=== PATIENT | female | born 1985 | race Caucasian/White ===

== ENCOUNTER 2024-08-16 15:21 | Emergency (ER) | payer MEDICARE, SELFPAY ==
--- NOTE | ~2024-08-16 | XR_ITS ---
CLINICAL HISTORY: pain, injury Three views of the left ankle. COMPARISON: None provided. FINDINGS: Lateral left ankle soft tissue swelling. Ankle joint effusion. Small nondisplaced fracture of the tip of the medial malleolus of the distal tibia. Distal fibula appears intact. Ankle mortise appears symmetric on non stressed views. Talar dome appears intact. Visualized tarsal bones appear intact. IMPRESSION: 1. Nondisplaced fracture of the tip of the medial malleolus of the distal tibia. 2. Lateral left ankle soft tissue swelling. This document has been electronically signed by: Shahram Engel MD on 08/16/2024 17:13:12
--- NOTE | ~2024-08-16 | XR_ITS ---
CLINICAL HISTORY: pain, injury Three views of the left foot. COMPARISON: None provided. FINDINGS: No ankle joint effusion. Normal tarsometatarsal alignment. Tarsals, metatarsals and phalanges appear intact. No radiopaque foreign body. IMPRESSION: 1. No radiographic evidence of acute injury to the bones of the left foot. No radiopaque foreign body. This document has been electronically signed by: Shahram Engel MD on 08/16/2024 16:29:23
--- NOTE | ~2024-08-16 | XR_ITS ---
CLINICAL HISTORY: pain, injury Four views of the left knee. COMPARISON: None provided. FINDINGS: No suprapatellar joint effusion. Joint spaces are maintained. Visualized portions of the distal femur, patella, and proximal tibia and fibula appear intact. No radiopaque foreign body. IMPRESSION: 1. No radiographic evidence of acute injury to the left knee. This document has been electronically signed by: Shahram Engel MD on 08/16/2024 16:31:59
--- NOTE | 2024-08-16 15:23 | ED.GENADULT ---
HPI - General Adult General Chief complaint: Extremity Injury, Lower Stated complaint: left ankle inj Time Seen by Provider: 08/16/24 16:19 Source: patient, family and RN notes reviewed Mode of arrival: ambulatory Limitations: no limitations History of Present Illness ED Provider: Agatha No PA-C HPI narrative: This is a 38-year-old female who presents emergency department with complaints of left ankle and foot pain status post inversion injury which occurred 2 days ago. Patient states that while she was walking she accidentally twisted her left ankle 2 times, felt a cracking/popping sensation in her ankle, and she fell to the ground. She denies hitting her head or LOC. She is not on anticoagulation. She has been taking [id number] pain medication as directed which has provided her with minimal relief. Patient is here with 2 young children, states difficult to rest ankle as she is taking care of them. No other complaints or concerns at this time. MD complaint: Left ankle/foot pain Onset (ago): day(s) Location: lower extremity Radiation: extremity Severity: moderate Quality: aching Pain Consistency: constant Relieving factors: immobilization Exacerbating factors: movement Associated symptoms: denies other symptoms Treatments prior to arrival: none Related Data Previous Rx's ?Medication ?Instructions ?Recorded acetaminophen 500 mg tablet 1,000 mg (2 x 500 mg) PO Q6H PRN 08/16/24 (Tylenol Extra Strength) pain #30 tabs ibuprofen 600 mg tablet 600 mg PO Q6H PRN pain #30 tabs 08/16/24 Allergies Allergy/AdvReac Type Severity Reaction Status Date / Time No Known Allergies Allergy Verified 08/16/24 15:27 Review of Systems Review of Systems: Yes all other systems are reviewed and are negative Constitutional: Constitutional: Reports as per [facility] Past Medical History Attestation statement: The following information was validated with the patient. Social History Social History Unable to assess alcohol history related to: Unknown Use of substances other than those prescribed or required for medical reasons: Unknown Advance Directives: No Advance Directives Information Provided: No Physical Exam ED Vital Signs: Vital Signs - 24 hr 08/16/24 15:26 Temperature 97.6 F Pulse Rate 86 Respiratory Rate 18 Blood Pressure 104/58 L Pulse Oximetry 98 Oxygen Delivery Method Room Air BMI result Body Mass Index 34.1 Const General: cooperative, comfortable and no acute distress Orientation/consciousness: patient oriented x3 Limitations: no limitations HENMT Head: Yes normal to inspection, Yes normocephalic and Yes atraumatic Ears: hearing grossly normal bilaterally General nose exam: Normal external nose present Face and sinus: Yes normal facial exam Mouth: Normal oral and palatal mucosa present, oropharynx normal and moist mucous membranes Throat: Yes posterior oropharynx normal Eyes General: appearance normal, both eyes and all related structures Eyelids: Yes eyelids normal Conjunctivae: conjunctivae normal Sclerae: sclerae normal Pupils: Equal, round and reactive pupils present EOM: EOMs intact bilaterally Neck Neck: Yes normal visual inspection, Yes full ROM and Yes no lymphadenopathy Lymphatic: no lymphadenopathy noted Chest Chest palpation & inspection: normal inspection of the chest Resp Effort & Inspection: normal respiratory effort and able to speak in complete sentences Auscultation: clear to auscultation bilaterally, no crackles, no rales, no rhonchi and no wheezes Cardio Rate: regular rate Rhythm: regular rhythm Heart sounds: S1 normal heart sound present and S2 normal heart sound present GI Inspection: Yes normal to inspection Skin General skin exam: no rashes or lesions noted Trauma: no lacerations or abrasions Wounds: no wounds Neuro General: patient oriented x3 and moves all extremities Cranial nerves: Yes Equal, round and reactive pupils present Extrem Other: Left ankle with moderate edema and ecchymosis seen overlying the lateral malleolus extending into the lateral dorsal aspect of the foot. Strong DP pulse. No open wounds or lacerations. She has tenderness palpation along the lateral malleolus, medial malleolus is nontender. Decreased range of motion of the ankle secondary to pain. She does have slight tenderness palpation along the dorsum of the foot, proximally the 3rd tarsal bone, also having tenderness palpation along the 1st toe. Achilles tendon is in intact. Left knee with no obvious bony deformity or swelling, no tenderness palpation along the proximal tibia or fibula. Negative anterior-posterior drawer spots, no joint laxity with varus and valgus strain. General: Yes normal to inspection Right upper extremity: normal to inspection Left upper extremity: normal to inspection Right lower extremity: normal to inspection Course Course Course Narrative: RME performed by Chen Wilkins PA-C. Patient is a 38 year old assigned female at presenting to the emergency department with left ankle pain. Detailed physical exam and review of systems are deferred to the granite setter. Imaging ordered. Patient placed back in the waiting room pending room availability and results. Medications Administered Discontinued Medications Generic Name Dose Route Start Last Admin Trade Name Radha PRN Reason Stop Dose Admin Ibuprofen 600 mg 08/16/24 17:14 08/16/24 18:00 Ibuprofen 600 Mg Tablet PO 08/16/24 17:15 600 mg ONCE ONE Administration Medical Decision Making Medical Decision Making MDM Narrative: This is a 38-year-old female who presents emergency department with concerns of left ankle pain status post inversion injury which occurred 2 days ago. On arrival, vital signs within normal limits. She is speaking full sentences under no acute distress. No head strike or LOC. differential diagnoses include fracture, contusion, sprain, strain. Will obtain x-rays Course: Left ankle x-ray revealing a nondisplaced fracture of the tip of the medial malleolus of the distal tibia. Discussed case with orthopedic PAAngelito who recommends tall walking boot, able to weightbear. Patient given crutches. Discharged on ibuprofen, Tylenol, and given orthopedic referral. Given strict return precautions. She understands and agrees with plan. Patient stable for discharge. Differential Diagnosis Differential Diagnoses: The differential diagnosis associated with the presentation includes See above Radiology Impression Discussion of test interpretation with radiology: I have reviewed the radiologist's reading. Radiologist Impression: CLINICAL HISTORY: pain, injury Three views of the left ankle. COMPARISON: None provided. FINDINGS: Lateral left ankle soft tissue swelling. Ankle joint effusion. Small nondisplaced fracture of the tip of the medial malleolus of the distal tibia. Distal fibula appears intact. Ankle mortise appears symmetric on non stressed views. Talar dome appears intact. Visualized tarsal bones appear intact. IMPRESSION: 1. Nondisplaced fracture of the tip of the medial malleolus of the distal tibia. 2. Lateral left ankle soft tissue swelling. This document has been electronically signed by: Shahram Engel MD on 08/16/2024 17:13:12 Dictated By: Shahram Engel MD COMPARISON: None provided. FINDINGS: No suprapatellar joint effusion. Joint spaces are maintained. Visualized portions of the distal femur, patella, and proximal tibia and fibula appear intact. No radiopaque foreign body. IMPRESSION: 1. No radiographic evidence of acute injury to the left knee. This document has been electronically signed by: Shahram Engel MD on 08/16/2024 16:31:59 Dictated By: Shahram Engel MD CLINICAL HISTORY: pain, injury Three views of the left foot. COMPARISON: None provided. FINDINGS: No ankle joint effusion. Normal tarsometatarsal alignment. Tarsals, metatarsals and phalanges appear intact. No radiopaque foreign body. IMPRESSION: 1. No radiographic evidence of acute injury to the bones of the left foot. No radiopaque foreign body. This document has been electronically signed by: Shahram Engel MD on 08/16/2024 16:29:23 Discharge Plan Discharge Clinical Impression: Ankle fracture Patient Disposition: Home, Self-Care Instructions: Ankle Fracture (ED) Additional Instructions: You were seen in the emergency department after injuring your left ankle. You have a fracture of your medial malleolus, this is part of your ankle. Please keep your ankle in the walking boot while your ambulatory. You may use Kip wrap as needed. Rest, ice, and elevate your leg. Alternate between ibuprofen and or Tylenol as needed for pain and symptoms. If any new or worsening symptoms occur including but not limited to worsening pain, increased swelling, please return for re-evaluation. Call orthopedics on Sunday for follow-up. Prescriptions: New ibuprofen 600 mg tablet 600 mg PO Q6H PRN (Reason: pain) Qty: 30 0RF acetaminophen [Tylenol Extra Strength] 500 mg tablet 1,000 mg PO Q6H PRN (Reason: pain) Qty: 30 0RF Referrals: [facility] – [place] [facility] [Provider Group] Print Language: Telugu
[2024-08-16 15:26] VITALS: BP 104/58; PULSE 86; RESP 18; TEMP 36.4; O2SAT 98; BMI 34.1
[2024-08-16 19:20] VITALS: BP 110/60; PULSE 80; RESP 16; TEMP 36.4; O2SAT 98
== END 2024-08-16 18:10 | disposition home or self-care (01) ==
PROVIDERS: Emergency Provider Internal Medicine
DX: S82.892A Other fracture of left lower leg, initial encounter for closed fracture (principal); M25.572 Pain in left ankle and joints of left foot; X50.1XXA Overexertion from prolonged static or awkward postures, initial encounter; Y93.9 Activity, unspecified; Y92.9 Unspecified place or not applicable; Y99.9 Unspecified external cause status
CPT/HCPCS: 73562; 73610; 73630; 99284

== ENCOUNTER → 2024-08-16 15:25 | Outpatient (BNV) | payer MEDICARE, SELFPAY | PROVIDERS: Emergency Provider Internal Medicine; Visit Provider Radiology Diagnostic Radiology | DX: M25.562 Pain in left knee (principal); R22.42 Localized swelling, mass and lump, left lower limb; M79.672 Pain in left foot | CPT/HCPCS: 73562; 73610; 73630 ==

== ENCOUNTER 2024-08-29 09:17 | Outpatient (REF) | payer OTHER, SELFPAY ==
--- NOTE | ~2024-08-29 | XR_ITS ---
EXAMINATION: XR ANKLE 3 OR MORE VIEWS LEFT HISTORY: M25.572 - Pain in left ankle and joints of left foot COMPARISON: Comparison is made with the prior examination dated 08/16/2024. FINDINGS: Three views of the left ankle are submitted. Osseous mineralization is normal. The previously seen tiny nondisplaced fracture of the tip of the medial malleolus is less well visualized on the current study due to obliquity. The joint spaces are preserved. There is diffuse soft tissue swelling. XR/XR ankle LT min 3V IMPRESSION: The previously seen tiny nondisplaced fracture of the tip of the medial malleolus is not well visualized. Electronically signed by: Norm Machuca MD 08/29/2024 02:15 PM EDT
== END 2024-08-29 09:18 | disposition home or self-care (01) ==
LOC: HO.HOSX 09:17
PROVIDERS: Visit Provider Physician Assistant
DX: M25.572 Pain in left ankle and joints of left foot (principal); S93.402A Sprain of unspecified ligament of left ankle, initial encounter; Z79.899 Other long term (current) drug therapy; X50.1XXA Overexertion from prolonged static or awkward postures, initial encounter; W18.30XA Fall on same level, unspecified, initial encounter; Y93.01 Activity, walking, marching and hiking
CPT/HCPCS: 73610; 99202

== ENCOUNTER 2024-08-29 13:56 | Outpatient (AMB) | payer MEDICARE, SELFPAY ==
--- NOTE | 2024-08-29 13:59 | MHC.OFFVIS ---
Vital Signs 08/29/24 14:12 Height 5 ft 7 in Weight 217 lb BMI 34.0 Intake Visit Reasons: FC-LT ankle fx DOI: 08/14/24 Intake Note: Sangita 38 year old female [place] today [place] [facility] [place] from 08/16[place]24. As per ED note patient reported that while she was walking she accidentally twisted her left ankle 2 times, felt a cracking/popping sensation in her ankle, and she fell to the ground. Seen in ED 2 days later where xrays were taken and patient foot was placed due to a confirmed medial malleolus fracture. Currently patient states very uncomfortable and feels tender. still sweollen and tight. in her calf muscle as well. No numbness and tingling. Allergies No Known Allergies Allergy (Verified 08/29/24 14:43) Medication List - Last Reconciled 09/03/24 by Angelito Brown PA-C bupropion HCl SR 150 mg PO BID sertraline 50 mg PO DAILY HPI HPI FC-LT ankle fx DOI: 08/14/24: Details: 38-year-old female presents to the office today for an injury she sustained to her left ankle on 08/14/2024. She states she twisted her ankle and fell. She was seen in the emergency department where x-rays were obtained which were significant for a an avulsion fragment of the medial malleolus. She was placed in a boot and referred to our office for ortho eval. [facility] Social History (Updated 08/29/24 @ 14:09 by CHENTE Chance) Unable to assess alcohol history related to: Unknown Patient Tobacco Use Status: Current everyday Tobacco user Current occupational status: unemployed Review of Systems Const All systems reviewed & are unremarkable except as noted in HPI and below Physical Exam Vital Signs: BMI result Body Mass Index 34.0 Const General: cooperative and no acute distress Orientation/consciousness: patient oriented x3 Resp Effort & Inspection: normal respiratory effort and able to speak in complete sentences Cardio Peripheral pulses: Peripheral pulses 2+ throughout Neuro General: patient oriented x3 Extrem Other: Left ankle is normal to inspection. No tenderness to palpation. She has some limited motion with inversion and eversion. No instability. Neurovascularly intact. Results Reviewed Results Reviewed: /XR ankle LT min 3V IMPRESSION: The previously seen tiny nondisplaced fracture of the tip of the medial malleolus is not well visualized. Assessment & Plan Assessment & Plan (1) Left ankle sprain: Code(s): S93.402A - Sprain of unspecified ligament of left ankle, initial encounter Category: Medical Plan: She can begin weaning from the boot and transition to a lace-up ankle brace which she was given in the office today. She will begin a course of physical therapy for range of motion, gentle strength and proprioceptive training. She can increase activities as tolerated. She will follow up with us as needed. Orders: Orders XR ankle LT min 3V 08/29/24 Angelito Brown PA-C M25.572 - Pain in left ankle and joints of left foot PT Evaluation and Treatment 08/29/24 Angelito Brown PA-C S93.402A - Sprain of unspecified ligament of left ankle, initial encounter Medications: Discontinued acetaminophen (Tylenol Extra Strength) Discontinued Reason: Patient no longer taking 1,000 mg (2 x 500 mg) PO Q6H PRN 30 tabs 0RF pain CHENTE Chance ibuprofen Discontinued Reason: Patient no longer taking 600 mg PO Q6H PRN 30 tabs 0RF pain CHENTE Chance Coding Level of Care Code New Pt Level 3 (89935) Complex EM visit Add On G2211 Diagnoses Left ankle sprain S93.402A
[2024-08-29 14:12] VITALS: BMI 34.0
== END 2024-08-29 14:44 | disposition home or self-care (01) ==
LOC: HO.HOS 13:57
PROVIDERS: Visit Provider Physician Assistant
DX: S93.402A Sprain of unspecified ligament of left ankle, initial encounter (principal)
CPT/HCPCS: 99203; G2211

== ENCOUNTER → 2024-08-29 13:58 | Outpatient (BNV) | payer OTHER, SELFPAY | PROVIDERS: Visit Provider Radiology Diagnostic Radiology | DX: M25.572 Pain in left ankle and joints of left foot (principal) | CPT/HCPCS: 73610 ==

== ENCOUNTER 2024-11-23 20:43 | Emergency (ER) | payer OTHER, SELFPAY ==
--- NOTE | ~2024-11-23 | XR_ITS ---
CLINICAL HISTORY: pain, injury 3 view right ankle Comparison: DX/SR - XR ANKLE 3 OR MORE VIEWS LEFT - 08/29/24 13:58 EDT Findings: No acute fractures or dislocations. No significant arthritic change or erosions. No ankle effusion. No radiopaque foreign body. Accessory ossicle posterior of the talus; os trigonum. IMPRESSION: 1. No acute findings. This document has been electronically signed by: Luc Justin MD on 11/23/2024 22:04:23
--- NOTE | ~2024-11-23 | XR_ITS ---
CLINICAL HISTORY: pain, injury 3 view right foot Comparison: CR - XR FOOT LT MIN 3V - 08/16/24 15:43 EDT Findings: Subcentimeter accessory ossicle inferior lateral of the cuboid. Subcentimeter accessory ossicle posterior of the talus; os trigonum. No significant loss of joint space, osteophytes, or erosions. No ankle effusion. No radiopaque foreign body. IMPRESSION: 1. No acute osseous injury. This document has been electronically signed by: Luc Justin MD on 11/23/2024 22:06:11
--- NOTE | 2024-11-23 20:53 | ED_ITS ---
HPI - General Adult General Chief complaint: Fall Stated complaint: right foot, left foot knee, elbow injury (fall) Time Seen by Provider: 11/23/24 22:37 Source: patient Limitations: no limitations History of Present Illness ED Provider: Tamara Pena PA-C HPI narrative: 39-year-old female who is morbidly obese, presents after a fall. Patient states she fell down 6-7 stairs, now complains of bilateral foot and knee pain with right elbow pain. She states she did strike her head, there was no loss consciousness, the patient does not use a blood thinner. She denies headache, dizziness, nausea vomiting or neck pain. Her primary concern is for right foot and ankle pain at this time. Related Data Home Medications ?Medication ?Instructions ?Recorded ?Confirmed bupropion HCl 150 mg tablet,12 hr 150 mg PO BID 09/03/24 sustained-release sertraline 50 mg tablet 50 mg PO DAILY 08/29/2408/13 Previous Rx's ?Medication ?Instructions ?Recorded ketorolac 10 mg tablet 10 mg PO Q6H PRN pain #20 ta bs 11/23/24 methocarbamol 750 mg tablet 1,500 mg (2 x 750 mg) PO Q 12H PRN 11/23/24 pain, moderate #12 tabs Allergies Allergy/AdvReac Type Severity Reaction Status Date / Time No Known Allergies Allergy Verified 11/23/24 20:59 [facility] Social History Social History (Updated 08/29/24 @ 14:09 by Jamilah José [facility]) Patient Tobacco Use Status: Current everyday Tobacco user Advance Directives: No Advance Directives Information Provided: Yes Current occupational status: unemployed Physical Exam ED Vital Signs: Vital Signs - 24 hr 11/23/24 20:59 11/23/24 23:26 Temperature 97.8 F 98.0 F Pulse Rate 68 85 Respiratory Rate 18 18 Blood Pressure 135/75 142/52 H Pulse Oximetry 98 96 Oxygen Delivery Method Room Air Room Air BMI result Body Mass Index 34.8 Course Course Course Narrative: Rapid medical examination performed in triage by Chen Wilkins PA-C. Patient is a 39 year old assigned female at presenting to the emergency department with several complaints after falling down some stairs. Patient states that she fell down several stairs and has a lot of soreness but her right foot hurts the worst. Detailed physical exam and review of systems are deferred to the home therapy clinician. Imaging ordered. Patient placed back in the waiting ro om pending room availability and results. Reevaluation(s) Reevaluation #1: When I went to assess the patient, she had verbalized to 1 of the technicians that she was angry she had waited so long, she has been here 2 hours total. Concurrently, we had a cardiac arrest come in to the emergency room, myself and my attending have been carrying for the acute patient. The patient stated ?there is no excuse she should have seen me?. I reiterated to the patient that acuity supersedes anything else in the emergency department and the patient was unstable and needed care. Time: 23:47 Medications Administered Discontinued Medications Generic Name Dose Route Start Last Admin Trade Name Edmundoq PRN Reason Stop Dose Admin Ketorolac Tromethamine 15 mg 11/23/24 23:40 11/24/24 00:00 Ketorolac Tromethamine 15 Mg/Ml Vial IM 11/23/24 23:41 15 mg ONCE ONE Administration Methocarbamol 1,500 mg 11/23/24 23:40 11/24/24 00:01 Methocarbamol 750 Mg Tablet PO 11/23/24 23:41 1,500 mg ONCE ONE Administration Medical Decision Making Medical Decision Making MDM Narrative: 39-year-old female who is morbidly obese, presents after a fall. Patient states she fell down 6-7 stairs, now complains of bilateral foot and knee pain with right elbow pain. She states she did strike her head, there was no loss consciousness, the patient does not use a blood thinner. She denies headache, dizziness, nausea vomiting or neck pain. Her primary concern is for right foot and ankle pain at this time. Problem: Obesity History: Per patient I have considered the following differential diagnoses: Fracture, dislocation, contusion, sprain Plan: X-rays of the foot and ankle ordered from triage, there was no fracture or dislocation. Her exam was completely unremarkable, she has full flexion and extension, there was no deformity no swelling, we will send with home care instructions. I have independently reviewed the following tests: X-ray right foot:Findings: Subcentimeter accessory ossicle inferior lateral of the cuboid. Subcentimeter accessory ossicle posterior of the talus; os trigonum. No significant loss of joint space, osteophytes, or erosions. No ankle effusion. No radiopaque foreign body. IMPRESSION: 1. No acute osseous injury. X-ray right ankle:Findings: No acute fractures or dislocations. No significant arthritic change or erosions. No ankle effusion. No radiopaque foreign body. Accessory ossicle posterior of the talus; os trigonum. IMPRESSION: 1. No acute findings. Differential Diagnosis Differential Diagnoses: The differential diagnosis associated with the presentation includes See medical decision-making Admission/Observation Consideration of admission/observation: Escalation of care including admission/observation considered Not applicable Radiology Impression Discussion of test interpretation with radiology: I have reviewed the radio logist's reading. Discharge Plan Discharge Clinical Impression: Right ankle sprain, Right foot sprain Patient Disposition: Home, Self-Care Instructions: Ankle Sprain (ED), Crutch Instructions (ED), Foot Sprain (ED), P.R.I.C.E. Treatment (ED), Walking Boot (ED) Additional Instructions: The x-rays of the foot and ankle were negative for fracture or dislocation, you have sustained sprains. Use the ketorolac as directed this is an anti- inflammatory take it with food. Use the methocarbamol as needed for further pain, this is a muscle relaxant, it will cause drowsiness do not drive or operate machinery while taking the medication. Bear weight as tolerated, the walking boot we will support unstable the joints. Follow up with your primary care provider as needed. Prescriptions: New ketorolac 10 mg tablet 10 mg PO Q6H PRN (Reason: pain) Qty: 20 0RF Rx Instructions: maximum total duration of 5 days from all oral, intranasal, or parenteral formulations. Patient received an intramuscular dose of Toradol here in the emergency room methocarbamol 750 mg tablet 1,500 mg PO Q12H PRN (Reason: pain, moderate) Qty: 12 0RF No Action bupropion HCl 150 mg tablet sustained-release 12 hr 150 mg PO BID sertraline 50 mg tablet 50 mg PO DAILY Interventions: ED Discharge Assessment Last Done: 11/24/24 00:36 Discharge Date/Time: 11/24/24 00:37 Print Language: Romanian
[2024-11-23 20:59] VITALS: BP 135/75; PULSE 68; RESP 18; TEMP 36.6; O2SAT 98; BMI 34.8
[2024-11-23 23:26] VITALS: BP 142/52; PULSE 85; RESP 18; TEMP 36.7; O2SAT 96
[2024-11-24 00:36] VITALS: BP 142/52; PULSE 85; RESP 18; TEMP 36.7; O2SAT 96
== END 2024-11-24 00:37 | disposition home or self-care (01) ==
PROVIDERS: Emergency Provider Emergency Medicine
DX: S93.401A Sprain of unspecified ligament of right ankle, initial encounter (principal); W10.9XXA Fall (on) (from) unspecified stairs and steps, initial encounter; Y93.9 Activity, unspecified; Y92.9 Unspecified place or not applicable; Y99.9 Unspecified external cause status; M79.671 Pain in right foot
CPT/HCPCS: 73610; 73630; 96372; 99284; J1885

== ENCOUNTER → 2024-11-23 20:53 | Outpatient (BNV) | payer OTHER, SELFPAY | PROVIDERS: Visit Provider Radiology Diagnostic Radiology | DX: S99.911A Unspecified injury of right ankle, initial encounter (principal); S99.921A Unspecified injury of right foot, initial encounter | CPT/HCPCS: 73610; 73630 ==